=== PATIENT | female | born 1995 | race Two or more races ===

== ENCOUNTER 2024-08-07 15:25 | Emergency (ER) | payer MEDICAID, SELFPAY ==
[2024-08-07 15:26] VITALS: BMI 29.0
[2024-08-07 15:35] VITALS: BP 127/80; PULSE 92; RESP 16; TEMP 37.3; O2SAT 97
--- NOTE | 2024-08-07 15:37 | XR_ITS ---
Examination: Left hand fifth digit 2 views Technique one AP lateral left hand fifth digit 2 views Exam date and time: August 07, 2024 1545 hours INDICATIONS: Patient fell today with injury to the hand fifth digit pain FINDINGS: Acute fracture traversing proximal aspect proximal phalanx fifth digit without significant displacement No dislocation IMPRESSION: Acute fracture proximal phalanx fifth digit
--- NOTE | 2024-08-07 15:56 | EDNOTE_ITS ---
Upper Extremity Injury RME/HPI General Chief Complaint: Extremity Injury, Upper Stated Complaint: L PINKY FINGER PAIN S/P FALL Time Seen by Provider: 08/07/24 15:36 Arrival date/time: 08/07/24 15:25 29-year-old female presents to the emergency department complaint of left pinky pain patient reports symptoms happened after a ground-level fall today Limitations: no limitations Related Data Home Medications ?Medication ?Instructions ?Recorded ?Confirmed vits no.130-ferrous fum 1 tab PO QDAY 01/31/24 02/04/24 27 mg iron-folic acid 800 mcg tablet ( Vitamin) Previous Rx's ?Medication ?Instructions ?Recorded ibuprofen 600 mg tablet 600 mg PO Q6H #30 tabs 08/07/24 Allergies Allergy/AdvReac Type Severity Reaction Status Date / Time No Known Allergies Allergy Verified 02/04/24 03:03 Review of Systems Review of Systems Systems Reviewed: All systems reviewed, normal except as documented Constitutional Constitutional: Reports system reviewed and no additional complaints, except as documented, Denies fever(s) and Denies headache(s) Eyes Eyes: Reports system reviewed and no additional complaints, except as documented and Denies blurry vision ENT Ears, Nose, Mouth, and Throat: Reports system reviewed and no additional complaints, except as documented, Denies headache(s), Denies nasal congestion an d Denies nasal discharge Cardiovascular Cardiovascular: Reports system reviewed and no additional complaints, except as documented, Denies chest pain and Denies dyspnea Respiratory Respiratory: Reports system reviewed and no additional complaints, except as documented, Denies chest congestion, Denies cough and Denies dyspnea Gastrointestinal Gastrointestinal: Reports system reviewed and no additional complaints, except as documented and Denies abdominal pain Musculoskeletal Musculoskeletal: Reports system reviewed and no additional complaints, except as documented, Reports arthralgias, Denies numbness, Denies stiffness and Denies tingling Integumentary/Breasts Skin/Breast: Reports system reviewed and no additional complaints, except as documented and Denies rash Neurologic Neurologic: Reports system reviewed and no additional complaints, except as documented, Reports as per HPI, Denies headache(s), Denies numbness and Denies tingling Past Medical History Past Medical History NEUROLOGIC: Negative Neurological Disorders CARDIAC: Negative Cardiac Disorders ED Exam General Limitations: Present no limitations General appearance: Present alert and in no apparent distress Head Head exam: Present atraumatic Eye Eye exam: Present normal appearance, PERRL and EOMI ENT ENT exam: Present normal exam, normal oropharynx and mucous membranes moist Neck Neck exam: Present normal inspection, full ROM and trachea midline Chest Chest inspection: Present normal inspection and symmetric chest wall rise Respiratory Respiratory exam: Present normal lung sounds bilaterally Cardiovascular Cardiovascular exam: Present regular rate, normal rhythm and normal heart sounds Abdominal Exam Abdominal exam: Present soft and normal bowel sounds Extremities Exam Extremities exam: Present tenderness, normal capillary refill and joint swelling Back Exam Back exam: Present normal inspection and full ROM Neurological Exam Neurological exam: Present alert, oriented X3 and CN II-XII intact Psychiatric Psychiatric exam: Present normal affect and normal mood Skin Skin exam: Present warm, dry, intact and normal color Course Quality Measures none Orders Category Date Time Status Splint / Immobilizer STAT Care 08/07/24 15:56 Active XR finger LT min 2V Stat Exams 08/07/24 15:37 Completed Vital Signs Vital signs: Vital Signs Temperature 99.2 F 08/07/24 15:35 Pulse Rate 92 08/07/24 15:35 Respiratory Rate 16 08/07/24 15:35 Blood Pressure 127/80 08/07/24 15:35 Pulse Oximetry (%) 97 08/07/24 15:35 Oxygen Delivery Method Room Air 08/07/24 15:35 O2 saturation 97% room air within normal limits Procedures -ED Splint Fabrication: Pre-Fabricated Type: Finger Protector Reason for Splint: Optimal Positioning and Pain Management Site condition: Pain Circulation Distal to Splint: Yes Movement Distal to Splint: Yes Senation Distal to Splint: Yes Tolerance: Tolerates Well Extremity Injury MDM Narrative MDM Narrative:: 29-year-old female presents to the emergency department complaint of left pinky pain patient reports symptoms happened after a ground-level fall today On exam patient has pain mild swelling to left pinky X-ray of the left hand obtained patient does have fracture left hand fifth digit Patient placed in a finger splint Patient discharged home in no distress to follow-up with primary care doctor in the next 24 to 48 hours and for any worsening symptoms to return to the ER immediately Patient data External records reviewed:: [facility] previous records Clinical information provided by:: patient Social determinants that could affect healthcare access:: none Patient has the following chronic illnesses:: None How is presenting disease/condition affected by chronic disease/condition?: no chronic disease Evaluation data The following diagnostics were reviewed and interpreted by me:: radiology exam(s) Lab and/or radiology exams considered but not ordered:: Radiology obtained Interpretation Summary: Reviewed by me Medications / Prescriptions Medications or Prescriptions considered but not ordered:: Given Medication administrations:: Given Consultations Consultation(s) initiated? (list below): No Diagnosis Upper Extremity Injury Differential Diagnosis: finger sprain, dislocation of finger and fracture of hand Most likely diagnosis given after review of the tests above:: Finger fracture Admission Indicated Admission indicated?: not indicated Admission Request Was there a request for admission?: No Disposition Plan Disposition Plan: Discharge Discharge Attestation Discharge Attestation: The patient and all family members were given an opportunity to ask questions and understood the discharge instructions. Discharge instructions specifically effects, indications for sooner follow up or return to the emergency department, and the expected course of current diagnosis. Patient condition: Stable Discharge Plan Plan Patient Disposition: HOME (Self Care) Disposition Comment: Stable Prescriptions/Referrals Prescriptions/Med Rec: New ibuprofen 600 mg tablet 600 mg PO Q6H Qty: 30 0RF No Action Vitamin 27 mg iron- 800 mcg tablet 1 tab PO QDAY Patient Comments: TAKE 1 TABLET BY MOUTH EVERY DAY Problem List Clinical Impression: Fracture of finger of left hand Patient/Caregiver Discharge Instructions Education Materials: [employer] Additional Instructions: Please follow up with your primary care doctor in the next 24-48hrs for any worsening symptoms return here immediately Print Language: Azerbaijani Stand Alone Forms: [employer] Award Info., Work/School Release, Patient Portal Info Letter PA/KORIN Supervising Physician ALEX/KORIN Supervising Physician: Dr Villavicencio
== END 2024-08-07 16:09 | disposition home or self-care (01) ==
LOC: SERX 16:13
PROVIDERS: Emergency Provider Emergency Medicine; PCP Family Medicine
DX: S62.617A Displaced fracture of proximal phalanx of left little finger, initial encounter for closed fracture (principal); W18.30XA Fall on same level, unspecified, initial encounter
CPT/HCPCS: 73140; 99283